=== PATIENT | male | born 1975 | race Caucasian/White ===

== ENCOUNTER 2017-04-24 17:29 | Emergency (ER) | payer SELFPAY ==
[~2017-04-24 17:29] MED LIST: Iopamidol 370 76% 100 ML VIAL ONE
[2017-04-24] MEDS ORDERED: Ondansetron HCl/PF 4 MG/2 ML Vial ONE (17:49)
[2017-04-24 17:50] LABS: #Basophils 0.1 thou/uL (0.0-0.2); #Lymphocytes 1.9 thou/uL (1.20-3.40); #Neutrophils 9.5 thou/uL (1.40-6.50); %Basophils 0.6 % (0.0-1.0); %Eosinophils 0.3 % (0.0-10.0); %Lymphocytes 15.3 % (21.0-51.0); %Monocytes 7.7 % (0.0-10.0); %Neutrophils 76.1 % (42.0-75.0); Hemoglobin 16.5 g/dL (14.0-18.0); Mean Corpuscular HGB CONC 34.4 g/dL (32.0-36.0); Mean Corpuscular Hemoglobin 32.4 pg (27.0-31.0); Mean Corpuscular Volume 94.2 fl (80.0-94.0); Mean Platelet Volume 7.4 fL (7.4-10.4); Platelet Count 152 thou/uL (130-400); RBC Distribution Width 11.6 % (11.5-14.5); White Blood Cell (WBC) Count 12.5 thou/uL (4.8-10.8)
[2017-04-24 17:53] LABS: MDiff Complete? YES; Manual Diff?? NO
[2017-04-24 18:07] LABS: ALT (SGPT) 30 U/L (8-55); AST (SGOT) 21 U/L (5-34); Albumin 4.1 g/dL (3.5-5.0); Alkaline Phosphatase 124 U/L (40-150); Anion Gap 15 mmol/L (10-20); BUN (Urea Nitrogen) 11 mg/dL (8.9-20.6); Calc. Creatinine Clearance 0 mL/min (70-130); Calcium 9.1 mg/dL (7.8-10.44); Carbon Dioxide 23 mmol/L (22-29); Chloride 103 mmol/L (98-107); Estimated GFR-MDRD 85; Globulin 3.8 g/dL (2.4-3.5); Glucose 185 mg/dL (70-105); Lipase 12 U/L (8-78); Potassium 3.5 mmol/L (3.5-5.1); Protein, Total 7.9 g/dL (6.0-8.3); Sodium 137 mmol/L (136-145)
[2017-04-24 18:08] LABS: CKMB 0.8 ng/mL (0-6.6); Troponin I 0.017 ng/mL (< 0.028)
[2017-04-24 18:27] LABS: Bilirubin Small (Negative); Blood, Urine Negative (Negative); Clarity Hazy (Clear); Glucose, Urine (Dipstick) 500 mg/dL (Negative); Leukocyte Negative (Negative); Nitrite Negative (Negative); Protein, Urine (Dipstick) 30 mg/dL (Neg-Trace); Specific Gravity, Urine 1.025 (1.005-1.030); Urobilinogen 0.2 mg/dL (0.2-1.0); pH, Urine 5.5 (5.0-9.0)
[2017-04-24 18:35] LABS: Bacteria/HPF Rare-Few HPF (None Seen); Hyaline Casts/LPF 0-3 HYALINE CAST LPF (0-3 Hyaline); Other Microscopic Description 2+ MUCUS; RBC/HPF 0-3 HPF (0-3)
[2017-04-24] MEDS ORDERED: Ciprofloxacin 500 MG TAB ONE ×2 (19:04→19:08)
[2017-04-24] MEDS ORDERED: metroNIDAZOLE 500 MG/100 ML BAG ONE (19:04)
[2017-04-24] MEDS ORDERED: Dicyclomine 20 MG TAB ONE (19:04)
[2017-04-24] MEDS ORDERED: metroNIDAZOLE 250 MG TAB ONE (19:05)
--- NOTE | 2017-04-24 23:19 | CT ---
CT ABDOMEN AND PELVIS WITH CONTRAST: Date: 04-24-[address] of the abdomen and pelvis was performed for evaluation of upper abdominal pain and left lo wer quadrant pain. Axial slices were acquired after giving IV contrast. Oral contrast was withheld b y request. FINDINGS: The lung bases are clear except for an area of linear scarring in the left lower lobe. The liver and spleen were borderline in size but internally, each appeared normal. The spleen was unremarkable. N o stones were seen in the gallbladder. The adrenal glands were unremarkable. The abdominal aorta was normal in size. The right kidney appears normal. The left kidney contains some nonobstructing calculi, including a l arge one in the lower pole measuring 1.5 cm in size. 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 I do not see a dilated ureter leading me to wonder if th is is actually a condition such as a congenital UPJ narrowing. I would recommend referring the patie nt to an urology for an elective follow up. A retrograde study might even be useful to better displa y it. There is no distention of bowel to suggest obstruction. The overall thickening of the colonic wall s eems slightly increased throughout the entire colon. This might signify very mild colitis. There are no inflammatory changes around the bowel itself. The appendix appears normal. No free air for free fluid was seen. CT PELVIS: No pelvic masses, fluid collections, or inflammatory changes in the pelvis fat. The patient does hav e a left paracentral bulge of the L5-S1 disc. IMPRESSION: 1. Colonic wall is marginally thick throughout. Cannot rule out mild colitis. 2. Left renal calculi. Left hydronephrosis, but probably not due to calculi. 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 Elective urological follow up recommended. 3. Small left paracentral disc bulge at L5-S1. Correlate with any symptoms. POS: HOME
== END 2017-04-24 19:23 | disposition home or self-care (01) ==
LOC: BURERS 17:29
DX: K52.9 Noninfective gastroenteritis and colitis, unspecified (principal); N13.2 Hydronephrosis with renal and ureteral calculous obstruction
CPT/HCPCS: 36415; 74177; 80053; 81003; 81015; 82553; 83690; 84484; 85025; 93005; 96361; 96374; A4216; J2405

== ENCOUNTER 2019-02-05 14:00 | Emergency (ER) | payer SELFPAY | END 2019-02-05 14:10 | disposition home or self-care (01) | LOC: BURERS 14:00 | DX: K02.9 Dental caries, unspecified (principal) | CPT/HCPCS: 99282 ==

== ENCOUNTER 2022-07-09 11:01 | Emergency (ER) | payer SELFPAY ==
[2022-07-09] MEDS ORDERED: Ibuprofen 200 MG TAB ONE (11:32)
[2022-07-09] MEDS ORDERED: Clindamycin 150 MG CAP ONE (11:32)
== END 2022-07-09 11:34 | disposition home or self-care (01) ==
LOC: BURERS 11:01
DX: K04.4 Acute apical periodontitis of pulpal origin (principal)
CPT/HCPCS: 99282